=== PATIENT | female | born 1995 | race Caucasian/White ===

== ENCOUNTER → 2016-08-03 | Outpatient (CLI) | payer MEDICAID ==
[2015-11-21 12:33] VITALS: BP 125/75
[~2016-08-03] MED LIST: ALBUTEROL0.83 MG/ML IH; ALBUTEROL2.5 MG/3 M; BENADRYL25 M2 PO; CEPHALEXIN500 M1 PO; DOXYCYCLINE 10100 MG PO; FLOVENT HFA12 G1 IH; LEXAPRO 10MG10 MG PO; NIGHT-TIME COL300 ML; PHENERGAN W/CO120 M1 PO; PREDNISONE10 MG PO; PREDNISONE20 M1 PO; PREDNISONE20 MG PO; QVAR8.7 G1 IH; RELION VEN0.09 MG/Ac IH; SYMBICORT1 AE3 IH; VENTOLIN0.09 MG IH; ZITHROMAX Z PA250 MG PO
== END ==
LOC: LAB 17:50
DX: N89.8 Other specified noninflammatory disorders of vagina (principal); R35.0 Frequency of micturition; A54.89 Other gonococcal infections
CPT/HCPCS: Q0111

== ENCOUNTER 2017-05-29 12:03 | Emergency (ER) | payer OTHER ==
[~2017-05-29] VITALS: Ht 152.4 cm; Wt 99.1 kg
[2017-05-29 13:11] LABS: EOS # 0.5 (0.04-0.40); EOS % 4.8 % (1.0-5.0); HEMATOCRIT 44.8 % (37.0-47.0); HEMOGLOBIN 14.9 g/dL (12.5-16.0); LYMPH# 1.7 (1.50-4.00); MEAN CELL VOLUME 87 fl (78-100); MEAN CORPUSCULAR HEMOGLOBIN 29 pg (27-31); MEAN CORPUSCULAR HGB CONC 33 g/dL (33-37); MEAN PLATELET VOLUME 10.1 fl (7.4-10.4); MONO # 1.1 (0.20-0.80); NEU # 7.5 (1.40-6.50); PLATELET COUNT 286 K/mm3 (130-400); RED BLOOD COUNT 5.15 M/mm3 (4.10-5.30); RED CELL DISTRIBUTION WIDTH 13.7 % (11.5-14.5); WHITE BLOOD COUNT 10.9 K/mm3 (4.8-10.8)
[2017-05-29 13:22] LABS: ALBUMIN 4.3 g/dL (3.5-5.0); BUN/CREATININE RATIO 14.8 (6.0-26.0); CALCIUM 9.5 mg/dL (8.4-10.2); POTASSIUM 4.2 mmol/L (3.6-5.0); TOTAL BILIRUBIN 0.5 mg/dL (0.2-1.3); TOTAL PROTEIN 8.5 g/dL (6.3-8.2)
[2017-05-29] MEDS ORDERED: PREDNISONE10 MG PO (13:38)
[2017-05-29] MEDS ORDERED: ZITHROMAX Z PA250 MG PO (13:38)
[2017-05-29 13:45] VITALS: BP 126/85
== END 2017-05-29 13:41 | disposition home or self-care (01) ==
LOC: ED 12:03
PROVIDERS: Physician Assistant
DX: J45.901 Unspecified asthma with (acute) exacerbation (principal); F17.210 Nicotine dependence, cigarettes, uncomplicated; L02.212 Cutaneous abscess of back [any part, except buttock and flank]; R00.0 Tachycardia, unspecified
CPT/HCPCS: J2930

== ENCOUNTER 2018-12-15 20:10 | Emergency (ER) | payer SELFPAY ==
[~2018-12-15] VITALS: Ht 152.4 cm; Wt 90.9 kg
[2018-12-15] MEDS ORDERED: BUDESONIDE0.5 MG/2 M IH ×2 (21:32→21:34)
[2018-12-15] MEDS ORDERED: PREDNISONE20 M1 PO ×2 (21:32→21:34)
[2018-12-15 21:41] VITALS: BP 137/76
== END 2018-12-15 21:41 | disposition home or self-care (01) ==
LOC: ED 20:10
DX: J45.909 Unspecified asthma, uncomplicated (principal); F17.290 Nicotine dependence, other tobacco product, uncomplicated
CPT/HCPCS: J7512

== ENCOUNTER 2023-03-02 13:52 | Inpatient (IN) | payer MEDICAID ==
[~2023-03-02] VITALS: Ht 162.6 cm; Wt 79.5 kg
[~2023-03-02 13:52] MED LIST changes: +BUDESONIDE0.5 MG/2 M IH; +METRONIDAZOLE500 M1 PO; +PROAIR HFA0.09 MG/AC IH; +RT ALBUTEROL CC18 GM IH
[2023-03-02 15:44] LABS: BASO # 0.05 K/mm3 (0.02-0.10); EOS # 0.87 K/mm3 (0.04-0.40); EOS % 4.5 % (1.0-5.0); HEMATOCRIT 46.4 % (37.0-47.0); HEMOGLOBIN 15.2 g/dL (12.5-16.0); LYMPH# 2.92 K/mm3 (1.50-4.00); MEAN CELL VOLUME 90 fl (78-100); MEAN CORPUSCULAR HEMOGLOBIN 30 pg (27-31); MEAN CORPUSCULAR HGB CONC 33 g/dL (33-37); MEAN PLATELET VOLUME 9.9 fl (7.4-10.4); MONO # 1.21 K/mm3 (0.20-0.80); PLATELET COUNT 449 K/mm3 (130-400); RED BLOOD COUNT 5.15 M/mm3 (4.10-5.30); RED CELL DISTRIBUTION WIDTH 12.5 % (11.5-14.5); WHITE BLOOD COUNT 19.2 K/mm3 (4.8-10.8)
[2023-03-02 15:47] LABS: ALBUMIN 4.1 g/dL (3.5-5.0)
[2023-03-02 15:48] LABS: CALCIUM 9.9 mg/dL (8.3-10.5)
[2023-03-02 15:49] LABS: TOTAL PROTEIN 7.6 g/dL (6.4-8.3)
[2023-03-02 15:51] LABS: TOTAL BILIRUBIN 0.4 mg/dL (0.2-1.2)
[2023-03-02 19:09] LABS: URINE APPEARANCE CLEAR (CLEAR); URINE BLOOD 1+ (NEGATIVE); URINE COLOR YELLOW (YELLOW); URINE GLUCOSE TRACE (NEGATIVE); URINE LEUKOCYTE ESTERASE 1+ (NEGATIVE); URINE NITRATE NEGATIVE (NEGATIVE)
[2023-03-02 19:10] LABS: URINE BILIRUBIN NEGATIVE (NEGATIVE); URINE KETONE NEGATIVE (NEGATIVE); URINE PROTEIN(semi-quant) NEGATIVE (NEGATIVE)
--- NOTE | 2023-03-02 19:40 | NUR ---
Patient admitted from ED via wheel chair with Dx. of acute exacerbation of asthma accompanied by significant other. Oriented to room and call light. Reviewed new meds tonight of IVF's x 1 liter, prednisone, RT treatments, zithromax and IV rocephin. Bed alarm on for safety. Transfers to bed without difficulty. Patient has dry harsh couph and RT treatments reviewed and given. Couph subsides afterwards and states yes to feeling she can breathe better. See admit vitals. Coke given per request. Visiting hours reviewed with patient and significant other and he may stay until 2200. Patient initially states "if he has to leave, I am too. Nurse and significant other encourage patient to stay for continued above treatment ordered and not stable to leave tonight.
[2023-03-02 20:12] VITALS: BP 116/65
--- NOTE | 2023-03-02 22:00 | NUR ---
Patient has been resting with eyes closed. O2 on 2lpnc. Significant other sleeping in chair and awakened by this nurse, fell back asleep, [employer]TER awakened then charge nurse in and reviewed visiting policy hours. Significant other left for the night and states will return in am during visiting hours.
[2023-03-02 22:08] VITALS: BP 126/75
--- NOTE | 2023-03-03 01:00 | NUR ---
Patient having dry harsh couphing spell and HR via tele reading from 122 to 146. Nurse into patients room and RT treatment given. HR decreases to 112 but fluctuates. Patient falls asleep during RT treatment and nurse arouses and assists with nebulizer. Couph subsides. sao2 reading 92% on 2lpnc and increased to 3lpnc, sats 95%.
[2023-03-03 02:00] VITALS: BP 113/76
[2023-03-03 05:55] VITALS: BP 123/72
[2023-03-03 06:41] LABS: HEMATOCRIT 40.4 % (37.0-47.0); HEMOGLOBIN 13.4 g/dL (12.5-16.0); LYMPH# 1.31 K/mm3 (1.50-4.00); MEAN CELL VOLUME 91 fl (78-100); MEAN CORPUSCULAR HEMOGLOBIN 30 pg (27-31); MEAN CORPUSCULAR HGB CONC 33 g/dL (33-37); MEAN PLATELET VOLUME 9.3 fl (7.4-10.4); MONO # 0.49 K/mm3 (0.20-0.80); NEU # 11.18 K/mm3 (1.40-6.50); PLATELET COUNT 363 K/mm3 (130-400); RED BLOOD COUNT 4.46 M/mm3 (4.10-5.30); RED CELL DISTRIBUTION WIDTH 12.5 % (11.5-14.5)
[2023-03-03 06:50] LABS: CALCIUM 9.3 mg/dL (8.3-10.5)
[2023-03-03 09:45] VITALS: BP 105/60
[2023-03-03] MEDS ORDERED: BUDESONIDE0.5 MG/2 M IH (12:43)
[2023-03-03] MEDS ORDERED: ZITHROMAX 250M250 MG PO (12:44)
[2023-03-03] MEDS ORDERED: PREDNISONE20 M1 PO (12:45)
[2023-03-03] MEDS ORDERED: RT ALBUTEROL CC18 GM IH (12:46)
[2023-03-03 13:50] VITALS: BP 120/75
== END 2023-03-03 17:06 | disposition home or self-care (01) | DRG 203 ==
LOC: ED 13:52 → MED/SURG 16:32
PROVIDERS: ADMIT Nurse Practitioner
DX: J45.901 Unspecified asthma with (acute) exacerbation (principal); D72.829 Elevated white blood cell count, unspecified; F17.210 Nicotine dependence, cigarettes, uncomplicated; Z91.148 Patient's other noncompliance with medication regimen for other reason
CPT/HCPCS: C9113; J0696; J2930; J7030; J7512

== ENCOUNTER 2023-04-10 21:43 | Emergency (ER) | payer MEDICAID ==
[~2023-04-10] VITALS: Ht 157.5 cm; Wt 79.5 kg
[~2023-04-10 21:43] MED LIST changes: +IPRATROPIUM BROM3 M1 IH; +ZITHROMAX 250M250 MG PO
[2023-04-10] MEDS ORDERED: Albuterol/Ipratropium 3 MG-0.5 MG/3 ML Neb Soln IH ONE ×4 (22:30→23:45)
[2023-04-10] MEDS ORDERED: predniSONE 10 MG,predniSONE 50 MG PO ONE (22:30)
[2023-04-11 00:15] VITALS: BP 171/115
== END 2023-04-11 00:15 | disposition left against medical advice (07) ==
LOC: ED 21:43
DX: J45.901 Unspecified asthma with (acute) exacerbation (principal); Z91.040 Latex allergy status
CPT/HCPCS: J7512